=== PATIENT | female | born 1955 | race African-American/Black ===

== ENCOUNTER 2016-10-08 21:24 | Emergency (ER) | payer SELFPAY ==
[~2016-10-08] VITALS: Ht 162.6 cm; Wt 77.1 kg
[2016-10-08 21:38] VITALS: BP 143/78
[2016-10-08] MEDS ORDERED: NORVASC2.5 MG PO (21:45)
--- NOTE | 2016-10-08 21:48 | NUR ---
PATIENT LEFT WITHOUT BEING SEEN BY DR. GATES. NO FURTHER CARE PROVIDED FOR PATIENT. PATIENT STATES "MY BLOOD PRESSURE MACHINE AT HOME WOULDN'T READ MY BP, THAT'S WHY I CAME IN. BUT I FEEL OK NOW AND MY BLOOD PRESSURE 143/78 HR 81 SEEMS TO BE OK. I'LL JUST GO HOME AND SEE MY DOCTOR TOMORROW. I'LL COME BACK IF I FEEL WORSE."
== END 2016-10-08 21:48 | disposition left against medical advice (07) ==
LOC: MED 21:24
DX: R03.0 Elevated blood-pressure reading, without diagnosis of hypertension (principal); Z53.21 Procedure and treatment not carried out due to patient leaving prior to being seen by health care provider